=== PATIENT | female | born 1935 | race Caucasian/White ===

== ENCOUNTER 2017-09-18 12:13 | Emergency (ER) | payer MEDICARE ==
[~2017-09-18] VITALS: Ht 167.6 cm; Wt 77.3 kg
[2017-09-18 12:27] VITALS: Ht 167.6 cm; Wt 77.3 kg
[2017-09-18] MEDS ORDERED: ASPIRIN81 MG PO (12:29)
[2017-09-18] MEDS ORDERED: GLIMEPIRIDE4 MG PO (12:30)
[2017-09-18] MEDS ORDERED: CYCLOBENZAPRINE5 MG PO (12:30)
[2017-09-18] MEDS ORDERED: HYZAAR 50-12.51 TAB PO (12:30)
[2017-09-18] MEDS ORDERED: PROTONIX40 MG PO (12:31)
[2017-09-18] MEDS ORDERED: GLUCOPHAGE500 MG PO (12:31)
[2017-09-18 13:04] LABS: BASOPHILS 0.4 % (0-2); EOSINOPHILS 2.7 % (0-7); HEMATOCRIT 36.4 % (36.0-48.0); HEMOGLOBIN 12.3 g/dL (12-16); IMMATURE GRANULOCYTES 0.4 % (0-5); LYMPHOCYTES 23.4 % (15-50); MCHC 33.8 g/dL (31.0-37.0); MCV 85.8 fL (80.0-100.0); MEAN PLATELET VOLUME 8.7 fL (7.4-10.4); MONOCYTES 5.5 % (2-11); NEUTROPHILS 67.6 % (40-80); PLATELET COUNT 227 10x3/uL (130-400); RBC 4.24 10x6/uL (4.00-5.40); RDW 12.8 % (11.5-14.5); WBC 8.2 10x3/uL (4.8-10.8)
[2017-09-18 13:27] LABS: APPEARANCE CLEAR (CLEAR); BILIRUBIN NEGATIVE (NEGATIVE); COLOR STRAW (YELLOW); GLUCOSE 100 mg/dL (NEGATIVE); KETONE NEGATIVE (NEGATIVE); NITRITE NEGATIVE (NEGATIVE); PROTEIN TRACE mg/dL (NEGATIVE); UROBILINOGEN NORMAL (NORMAL)
[2017-09-18 13:29] LABS: EPITHELIAL CELLS 0-5 /hpf (0-5); RED CELLS - URINE >50 /hpf (0-5); WHITE CELLS - URINE >50 /hpf (0-5)
[2017-09-18 13:30] LABS: BACTERIA MANY /hpf (NONE SEEN)
[2017-09-18 13:31] LABS: HYALINE CAST OCC /lpf (NONE SEEN); MUCUS <1+ /lpf (NONE SEEN)
[2017-09-18 13:43] LABS: ALBUMIN 3.1 g/dL (3.4-5.0); ANION GAP 9.9 mmol/L (8-16); BILIRUBIN - TOTAL 0.23 mg/dL (0.2-1.3); CALCIUM 8.7 mg/dL (8.5-10.1); CARBON DIOXIDE 32.3 mmol/L (21.0-32.0); CREATININE - SERUM 0.9 mg/dL (0.6-1.3); POTASSIUM - SERUM 4.2 mmol/L (3.5-5.1); PROTEIN - SERUM 7.9 g/dL (6.4-8.2)
[2017-09-18] MEDS ORDERED: MACROBID100 MG PO (14:19)
[2017-09-18 15:41] VITALS: BP 158/74
== END 2017-09-18 15:41 | disposition home or self-care (01) ==
LOC: D.ER 12:13
PROVIDERS: Emergency Medicine
DX: E11.40 Type 2 diabetes mellitus with diabetic neuropathy, unspecified (principal); E11.65 Type 2 diabetes mellitus with hyperglycemia; N39.0 Urinary tract infection, site not specified; I10 Essential (primary) hypertension; K21.9 Gastro-esophageal reflux disease without esophagitis

== ENCOUNTER → 2017-10-11 16:37 | Outpatient (CLI) | payer MEDICARE ==
[2017-09-18 12:27] VITALS: BMI 27.5
[~2017-10-11 16:37] MED LIST: ASPIRIN81 MG PO; CYCLOBENZAPRINE5 MG PO; GLIMEPIRIDE4 MG PO; GLUCOPHAGE500 MG PO; HYZAAR 50-12.51 TAB PO; MACROBID100 MG PO; PROTONIX40 MG PO
[2017-10-11 18:10] LABS: APPEARANCE CLEAR (CLEAR); BACTERIA MANY /hpf (NONE SEEN); BILIRUBIN NEGATIVE (NEGATIVE); COLOR YELLOW (YELLOW); EPITHELIAL CELLS 0-5 /hpf (0-5); GLUCOSE NEGATIVE (NEGATIVE); KETONE NEGATIVE (NEGATIVE); NITRITE NEGATIVE (NEGATIVE); PROTEIN NEGATIVE (NEGATIVE); RED CELLS - URINE 0-5 /hpf (0-5); UROBILINOGEN NORMAL (NORMAL)
== END | disposition home or self-care (01) ==
LOC: D.LABREF 16:37
PROVIDERS: Family Medicine
DX: N39.0 Urinary tract infection, site not specified (principal)

== ENCOUNTER → 2017-11-08 09:58 | Outpatient (CLI) | payer MEDICARE ==
[2017-09-18 12:27] VITALS: BMI 27.5
[2017-11-08 11:16] LABS: CHOL - HDL RATIO 2.9 ratio (2.3-4.1); LDL-HDL RATIO 1.5 ratio (1.5-3.5)
[2017-11-08 11:39] LABS: APPEARANCE SL CLDY (CLEAR); BILIRUBIN NEGATIVE (NEGATIVE); COLOR YELLOW (YELLOW); GLUCOSE NEGATIVE (NEGATIVE); KETONE NEGATIVE (NEGATIVE); NITRITE POSITIVE (NEGATIVE); PROTEIN NEGATIVE (NEGATIVE); SPECIFIC GRAVITY 1.015 (1.005-1.020); UROBILINOGEN NORMAL (NORMAL)
[2017-11-08 11:41] LABS: BACTERIA MANY /hpf (NONE SEEN); EPITHELIAL CELLS 0-5 /hpf (0-5); MUCUS <1+ /lpf (NONE SEEN); RED CELLS - URINE 0-5 /hpf (0-5); WHITE CELLS - URINE 25-50 /hpf (0-5)
== END | disposition home or self-care (01) ==
LOC: D.LABREF 09:58
PROVIDERS: Family Medicine
DX: N39.0 Urinary tract infection, site not specified (principal); E78.5 Hyperlipidemia, unspecified